=== PATIENT | female | born 1990 | race Two or more races ===

== ENCOUNTER 2018-02-15 00:09 | Emergency (ER) | payer OTHER ==
[~2018-02-15] VITALS: Ht 167.6 cm; Wt 55.7 kg
[2018-02-15 00:42] LABS: HEMATOCRIT 29.5 % (36.0-46.0); HEMOGLOBIN 9.2 G/DL (11.9-15.5); MCH 24.9 PG (29.0-34.0); MCHC 31.2 G/DL (30.0-36.0); MCV 79.9 FL (83-99); PLATELET COUNT 310 K/uL (156-360); RBC DIS.WIDTH-CV 17.2 % (11.8-14.6); RBC DIS.WIDTH-SD 49.8 % (39-53); RED BLOOD COUNT 3.69 M/uL (3.80-5.20); WHITE BLOOD COUNT 7.1 K/uL (4.1-10.2)
[2018-02-15 00:52] LABS: CHLORIDE 108 mEq/L (99-109); POTASSIUM 3.9 mEq/L (3.7-5.4); SODIUM 144 mEq/L (136-147)
[2018-02-15 00:53] LABS: GLUCOSE 77 mg/dL (70-99)
[2018-02-15 00:57] LABS: CREATININE 0.9 mg/dL (0.6-1.3); GFR ESTIMATE (CALCULATED) > 59 mL/min/
[2018-02-15 00:58] LABS: UREA NITROGEN (BUN) 11 mg/dL (9-23)
[2018-02-15 01:02] LABS: QUANTITATIVE HCG < 4.0 MIU/ML
[2018-02-15 01:11] LABS: APPEARANCE CLOUDY ((CLEAR)); BILIRUBIN NEGATIVE; BLOOD NEGATIVE; COLOR YELLOW ((YELLOW)); GLUCOSE (STRIP) NEGATIVE; KETONES NEGATIVE; LEUKOCYTES NEGATIVE; NITRITE NEGATIVE; PROTEIN (STRIP) 30; SPECIFIC GRAVITY 1.019 (1.000-1.030)
[2018-02-15 01:15] LABS: BACTERIA RARE /HPF; EPITHELIAL CELLS RARE /HPF; MUCUS 2+ /LPF; RED BLOOD CELLS 0-5 /HPF (0-5); UCUL ADDED? NO; WHITE BLOOD CELLS 0-5 /HPF (0-5)
[2018-02-15] MEDS ORDERED: FLAGYL500 MG PO (02:40)
[2018-02-15] MEDS ORDERED: BACTRIM,SEPT1 TABLET PO (02:40)
[2018-02-15 02:46] LABS: SOURCE SWAB
[2018-02-15 03:21] VITALS: BP 119/63
== END 2018-02-15 03:43 | disposition home or self-care (01) ==
LOC: EME 00:09
PROVIDERS: Emergency Medicine
PROC: 0W9N3ZZ Drainage of Female Perineum, Percutaneous Approach (ICD-10-PCS; principal; 2018-02-15)
DX: R10.9 Unspecified abdominal pain (principal); L02.215 Cutaneous abscess of perineum; G89.29 Other chronic pain; N76.0 Acute vaginitis; F17.200 Nicotine dependence, unspecified, uncomplicated; Z87.442 Personal history of urinary calculi
CPT/HCPCS: 80048; 81003; 84702; 85027; 87070; 87075; 87205; 87210; 87491; 87591; 99281; 99285